=== PATIENT | male | born 1955 | race Hispanic/Latino ===

== ENCOUNTER 2019-06-18 10:33 | Day surgery (SDC) | payer BC ==
[2019-06-18] MEDS ORDERED: NACL BACTERIOSTATIC INFILTRATI ONE (10:53)
[2019-06-18] MEDS ORDERED: LACTATED RINGERS 1,000 ML ONE (10:53)
--- NOTE | 2019-06-18 11:09 | Anesthesia Consultation ---
Anesthesia Consult and Med Hx Date of service: 06/18/19 - Airway Anesthetic Teeth Evaluation: Caps (temporary front upper incisor) ROM Head & Neck: Adequate Mental/Hyoid Distance: Adequate Mallampati Class: Class II Intubation Access Assessment: Good - Pulmonary Exam CTA: Yes - Cardiac Exam Cardiac Exam: RRR - Pre-Operative Health Status ASA Pre-Surgery Classification: ASA2 Proposed Anesthetic Plan: General - Pulmonary Hx Smoking: No Hx Sleep Apnea: No (BRENDEN PRE SCREEN HIGH RISK.) - Cardiovascular System Hx Hypertension: Yes (X 4 YRS) - Endocrine Hx Hypothyroidism: Yes (ON DAILY MEDS) - Other Systems Hx Cancer: No
--- NOTE | 2019-06-18 11:10 | Anesthesia Day of Surgery ---
Anesthesia Day of Surgery - Day of Surgery Patient Examined: Yes Patient H&P Reviewed: Yes Patient is NPO: Yes
[2019-06-18] MEDS ORDERED: ZOFRAN IV PRN (11:30)
[2019-06-18] MEDS ORDERED: VERSED IV NR (11:30)
[2019-06-18] MEDS ORDERED: LACTATED RINGERS 1,000 ML IV SCH (11:30)
[2019-06-18] MEDS ORDERED: DILAUDID IV PRN (11:30)
[2019-06-18] MEDS ORDERED: ANCEF/STERILE WATER 2 GM/20 ML IV NR (11:56)
[2019-06-18] MEDS ORDERED: GENTAMICIN/NS 120MG/100ML 120 MG/100 ML BAG IV NR (11:56)
[2019-06-18] MEDS ORDERED: DIPRIVAN 10 MG/ML IV ONE (12:01)
[2019-06-18] MEDS ORDERED: DILAUDID ONE (12:01)
[2019-06-18] MEDS ORDERED: XYLOCAINE MPF 2% ONE (12:02)
[2019-06-18] MEDS ORDERED: WATER FOR IRRIG STERILE IR ONE (12:35)
[2019-06-18] MEDS ORDERED: ZOFRAN ONE (12:49)
--- NOTE | 2019-06-18 12:55 | Post Operative Note ---
Date of procedure: 06/18/19 Pre-op diagnosis: inc psa Post-op diagnosis: same Findings: 48 gram gland Procedure: cysto pus bx Anesthesia: GETA Surgeon: JIL DORANTES Estimated blood loss: minimal Pathology: list (prostate) Specimen disposition: to lab Condition: stable Disposition: PACU
--- NOTE | 2019-06-18 12:57 | Discharge Summary ---
Short Stay Discharge Plan Activity: other (no straining ) Weight Bearing Status: Full Weight Bearing Diet: low fat, low cholesterol, low salt Special Instructions: other (inc fluids ) Follow up with: FERNANDO BLANCO MD [Primary Care Provider] - 7 Days JIL DORANTES MD [Staff Physician] - 14 Days
--- NOTE | 2019-06-18 13:33 | XRay Report ---
ABDOMEN 1 VIEW(S) INDICATION / CLINICAL INFORMATION: ELEVATED PSA. COMPARISON: None available. FINDINGS: TUBES / LINES: None. BOWEL GAS PATTERN: No significant abnormality. FREE AIR / EXTRALUMINAL GAS: None seen. ADDITIONAL FINDINGS: No significant additional findings. IMPRESSION: No significant abnormality. Signer Name: Pablo Whitlock Jr, MD Signed: 06/18/2019 1:28 PM Workstation Name: [id number]
--- NOTE | 2019-06-18 13:35 | Ultrasound Report ---
ULTRASOUND TRANSRECTAL HISTORY: Elevated PSA, ultrasound guidance for prostate biopsy. FINDINGS: 2 transrectal ultrasound images of the prostate gland are presented prior to prostate biopsy. The pr ostate gland volume measures 49.4 cc. There is no discrete prostate mass or calcifications. Ultrasoun d-guided prostate biopsy was performed by Dr. Saeed. IMPRESSION: Ultrasound guidance for prostate biopsy. Prostate volume measures 49.4 cc. Signer Name: Pablo Whitlock Jr, MD Signed: 06/18/2019 1:30 PM Workstation Name: [id number]
--- NOTE | 2019-06-18 13:44 | Operative Report ---
PREOPERATIVE DIAGNOSIS: Elevated PSA 6.4. POSTOPERATIVE DIAGNOSIS: Elevated PSA 6.4 with mildly enlarged prostate. PROCEDURE: Cystoscopy flexible (prostate needle biopsy and ultrasound guidance). SURGEON: Tremayne Saeed MD ANESTHESIA: General. FINDINGS: This is a gentleman with increased PSA and he now presents for prostate needle biopsy under ultrasound. All risks and implications discussed. DESCRIPTION OF PROCEDURE: The patient was brought to the operating room and placed on the operating table. Following induction of anesthesia, he was placed in the lithotomy position, prepped and draped in usual sterile fashion. Cystourethroscopy showed a normal urethra with mild bilobar hypertrophy. There were no lesions noted. Prostate ultrasound was carried out measured approximately 45-50 gram prostate. There were just a few calcifications. The capsule appeared to be intact. Six biopsies on the right, six on the left were carried out. The patient tolerated the procedure well. No significant bleeding. Proctofoam was used, brought to recovery in stable condition. [facility]# [id number] ELVIS/YASHIRA
--- NOTE | 2019-06-18 15:18 | Post Anesthesia Evaluation ---
- Post Anesthesia Evaluation Patient Participated: Yes Airway Patent: Yes Stable Respiratory Function: Yes Nausea/Vomiting: No Temp > 96.8F: Yes Pain Manageable: Yes Adequeate Hydration: Yes Anesthesia Complications: No Block Receding Appropriately: Not Applicable Patient on Ventilator: No
[2019-06-18 16:37] VITALS: BP 110/74
== END 2019-06-18 16:55 | disposition home or self-care (01) ==
LOC: OR 10:33
PROVIDERS: ATTEND Urology
DX: N40.0 Benign prostatic hyperplasia without lower urinary tract symptoms (principal); E78.00 Pure hypercholesterolemia, unspecified; I10 Essential (primary) hypertension; E03.9 Hypothyroidism, unspecified; Z98.890 Other specified postprocedural states; Z79.899 Other long term (current) drug therapy
CPT/HCPCS: 55700; 74018; 76872; 88305; 88344; A4217; J0690; J1170; J1580; J2250; J2405; J2704; J7120; 88342